=== PATIENT | male | born 1960 | race Caucasian/White ===

== ENCOUNTER 2019-09-24 17:26 | Inpatient (IN) | payer MEDICAID, OTHER ==
[~2019-09-24] VITALS: Ht 175.3 cm; Wt 44.1 kg
[~2019-09-24 17:26] MED LIST: ACET-1770 PO; LOSA100T14 PO; NICO-486 TD; PANT40TA5 PO
--- NOTE | 2019-09-24 17:38 | NUR ---
59 Y/O MALE BIB AMBULANCE WITH C/O WEAKNESS X 1 MONTH, PRODUCTIVE COUGH. PER REPORT PT IS ALSO C/O VOMITING AFTER HE EATS ANYTHING. VSS. FSBS FROM EMS WAS 60. NO LINE ESTABLISHED. PT PLACED ON CONT PULSE OX, NIBP, IP COUNSEL. PT CACHETIC AND LETHARGIC. Addendum: 09/24/19 at 2041 by ROSALINO PATIENT RESTING IN BED, NO NOTED NEEDS AT THIS TIME. NO CHANGE IN PATIENT'S STATUS. CALL LIGHT WITHIN REACH. BED IN LOWEST LOCKED POSITION. WILL CONTINUE TO MONITOR.
--- NOTE | 2019-09-24 17:46 | NUR ---
PIV ESTABLISHED. PT TOLERATED WITH NO COMPLAINTS. UNABLE TO DRAW LABS. D/T VALVE
[2019-09-24] MEDS: D5%-0.45% NACL 1,000 ML IV SCH ×2 (18:22→22:47)
[2019-09-24] MEDS ORDERED: PIPERACILLIN/TAZO/PMX 3.375GM 50 ML ONE (18:27)
[2019-09-24] MEDS ORDERED: PIPERACILLIN/TAZO/PMX 3.375GM 50 ML IVPB ONE (18:30)
--- NOTE | 2019-09-24 18:30 | NUR ---
PT GIVEN URINAL AND EDUCATED REGARDING NEEDING URINE SAMPLE. PT VERBALIZED UNDERSTANDING. NADN. VSS. NO OTHER NEEDS REQUESTED AT THIS TIME.
[2019-09-24 18:36] LABS: BASOPHILS # (AUTO) 0.01 x10^3/uL (0-0.1); BASOPHILS % (AUTO) 0 % (0-1); EOSINOPHILS # (AUTO) 0.11 x10^3/uL (0-0.4); EOSINOPHILS % (AUTO) 1 % (1-7); LYMPHOCYTES # (AUTO) 0.41 x10^3/uL (1-3.4); LYMPHOCYTES % (AUTO) 4 % (22-44); MD NO; MEAN CORPUSCULAR HEMOGLOBIN 30.1 pg (27.5-34.5); MEAN CORPUSCULAR VOLUME 91.2 fL (81-97); MEAN PLATELET VOLUME 7.6 fL (7.4-10.4); MONOCYTES # (AUTO) 0.42 x10^3/uL (0.2-0.8); MONOCYTES % (AUTO) 4 % (2-9); NEUTROPHILS # (AUTO) 8.46 x10^3/uL (1.8-6.8); NEUTROPHILS % (AUTO) 90 % (42-75); PLATELET COUNT 344 x10^3/uL (130-400); RED BLOOD COUNT 3.55 x10^6/uL (4.38-5.82); RED CELL DISTRIBUTION WIDTH 15.4 % (9.4-14.8)
[2019-09-24 18:37] LABS: INTERNATIONAL NORMALIZED RATIO 1.01 (0.93-1.1); PROTHROMBIN TIME 10.7 Seconds (9.6-11.5)
[2019-09-24 18:40] LABS: ALANINE AMINOTRANSFERASE 13 U/L (12-78); ALBUMIN 2.5 g/dL (3.4-5.0); ANION GAP 12 mmol/L (5-15); CHLORIDE 106 mmol/L (98-107); CREATININE 1.42 mg/dL (0.7-1.3)
[2019-09-24 18:42] LABS: ALKALINE PHOSPHATASE 91 U/L (45-117); BILIRUBIN,TOTAL 0.6 mg/dL (0.2-1.0)
--- NOTE | 2019-09-24 18:53 | NUR ---
BEDSIDE REPORT TO SD LEDBETTER
[2019-09-24] MEDS ORDERED: POLYETHYLENE GLYCOL 17 GM PACKET PO PRN (20:00)
[2019-09-24] MEDS ORDERED: ACETAMINOPHEN 325 MG TABLET PO PRN (20:00)
[2019-09-24] MEDS ORDERED: BISACODYL 10 MG SUPP PR PRN (20:00)
[2019-09-24] MEDS ORDERED: OXYcodone IR 5MG TABLET PO PRN (20:00)
[2019-09-24] MEDS ORDERED: ONDANSETRON ODT 4 MG PO PRN (20:00)
--- NOTE | 2019-09-24 20:08 | NUR ---
PATIENT FINISHED ANTIBIOTICS, NO NOTED COMPLICATIONS. PATIENT DENIES ANY REACTIONS. PATIENT'S BS CHECKED WITH BEDSIDE GLUCOMETER; RESULTED IN 144. PATIENT TOLERATING THERAPY WELL. VITAL SIGNS REMAIN STABLE. UPDATED ON PLAN OF CARE. WILL CONTINUE TO MONITOR, BED IN LOWEST LOCKED POSITION. CALL LIGHT WITHIN REACH.
--- NOTE | 2019-09-24 21:11 | NUR ---
REPORT GIVEN TO SD TOPETE. PATIENT WILL BE TRANSFERED VIA [facility]
[2019-09-24 21:23] VITALS: BP 143/87
[2019-09-24] MEDS: NICOTINE 21 MG/24 HR PATCH.TD24 TD SCH (21:25)
[2019-09-24] MEDS: SODIUM CHLORIDE 0.9% 1,000 ML IV SCH (21:51)
[2019-09-24] MEDS: HEPARIN 5,000 UNITS/ML, 1ML SQ SCH (21:52)
[2019-09-24] MEDS: PANTOPRAZOLE 40MG TABLET PO SCH (21:52)
[2019-09-24] MEDS ORDERED: TEMAZEPAM 15 MG CAPSULE PO PRN (22:00)
[2019-09-25] MEDS: D5%-0.45% NACL 1,000 ML IV SCH ×2 (02:17→05:52)
[2019-09-25 03:07] VITALS: BP 120/81
[2019-09-25] MEDS: HEPARIN 5,000 UNITS/ML, 1ML SQ SCH ×3 (05:34→21:45)
[2019-09-25 06:06] LABS: MEAN CORPUSCULAR HEMOGLOBIN 30.2 pg (27.5-34.5); MEAN CORPUSCULAR HGB CONC 33.1 g/dL (33.2-36.2); MEAN CORPUSCULAR VOLUME 91.3 fL (81-97); MEAN PLATELET VOLUME 7.9 fL (7.4-10.4); PLATELET COUNT 253 x10^3/uL (130-400); RED BLOOD COUNT 2.96 x10^6/uL (4.38-5.82); RED CELL DISTRIBUTION WIDTH 15.5 % (9.4-14.8)
[2019-09-25 06:13] LABS: ANION GAP 9 mmol/L (5-15); CALCIUM 8.7 mg/dL (8.5-10.1); CHLORIDE 109 mmol/L (98-107); CREATININE 1.25 mg/dL (0.7-1.3)
[2019-09-25 06:19] LABS: MICROSCOPIC NOT IND
[2019-09-25 06:30] LABS: BASOPHILS # (AUTO) 0.01 x10^3/uL (0-0.1); BASOPHILS % (AUTO) 0 % (0-1); EOSINOPHILS # (AUTO) 0.06 x10^3/uL (0-0.4); EOSINOPHILS % (AUTO) 1 % (1-7); LYMPHOCYTES # (AUTO) 0.51 x10^3/uL (1-3.4); LYMPHOCYTES % (AUTO) 7 % (22-44); MD SCAN; MONOCYTES # (AUTO) 0.49 x10^3/uL (0.2-0.8); MONOCYTES % (AUTO) 6 % (2-9); NEUTROPHILS % (AUTO) 86 % (42-75)
[2019-09-25 08:32] VITALS: BP 126/72
[2019-09-25] MEDS: SODIUM CHLORIDE 0.9% 1,000 ML IV SCH ×2 (08:44→21:48)
[2019-09-25] MEDS: PANTOPRAZOLE 40MG TABLET PO SCH (08:45)
[2019-09-25] MEDS: SENNA/DOCUSATE TABLET PO SCH (08:47)
[2019-09-25] MEDS ORDERED: LOSARTAN 100 MG TAB PO SCH (09:00)
[2019-09-25] MEDS ORDERED: FENTANYL 12 MCG PATCH TD SCH (14:30)
[2019-09-25 15:59] VITALS: BP 122/81
[2019-09-25] MEDS ORDERED: MORPHINE SULFATE 4 MG/ML, 1ML IV PRN (20:15)
[2019-09-25 20:32] VITALS: BP 129/80
[2019-09-25] MEDS: MORPHINE SULFATE 4 MG/ML, 1ML IVPush PRN (20:36)
[2019-09-25] MEDS: NICOTINE 21 MG/24 HR PATCH.TD24 TD SCH (20:40)
[2019-09-25] MEDS: PANTOPRAZOLE 40 MG IV IVPush SCH (21:45)
[2019-09-26] MEDS: MORPHINE SULFATE 4 MG/ML, 1ML IVPush PRN ×4 (00:27→11:43)
[2019-09-26 01:01] VITALS: BP 129/76
[2019-09-26] MEDS ORDERED: MORPHINE SULFATE 4 MG/ML, 1ML IVPush ONE (05:30)
[2019-09-26] MEDS: HEPARIN 5,000 UNITS/ML, 1ML SQ SCH ×3 (05:46→22:00)
[2019-09-26] MEDS: SODIUM CHLORIDE 0.9% 1,000 ML IV SCH ×2 (05:46→14:00)
[2019-09-26 07:44] VITALS: BP 130/81
[2019-09-26] MEDS: SENNA/DOCUSATE TABLET PO SCH (09:00)
[2019-09-26] MEDS: LOSARTAN 50MG TABLET PO SCH (10:25)
[2019-09-26] MEDS: PANTOPRAZOLE 40 MG IV IVPush SCH ×2 (10:44→20:15)
[2019-09-26 14:35] VITALS: BP 142/94
[2019-09-26] MEDS: morphine SULFATE ORAL.CONC 20 MG/ML PO PRN ×2 (16:57→20:15)
[2019-09-26 19:18] VITALS: BP 130/82
[2019-09-26] MEDS: NICOTINE 21 MG/24 HR PATCH.TD24 TD SCH (20:00)
[2019-09-26] MEDS: FENTANYL 25 MCG PATCH TD SCH (20:50)
[2019-09-27 00:27] VITALS: BP 145/84
[2019-09-27] MEDS: SODIUM CHLORIDE 0.9% 1,000 ML IV SCH ×3 (00:31→19:23)
[2019-09-27] MEDS: morphine SULFATE ORAL.CONC 20 MG/ML PO PRN ×6 (01:25→19:31)
[2019-09-27] MEDS: GUAIFENESIN/DM 200-20MG, 10ML UDC PO PRN ×2 (01:25→08:14)
[2019-09-27] MEDS: HEPARIN 5,000 UNITS/ML, 1ML SQ SCH ×3 (05:31→21:02)
[2019-09-27 08:08] VITALS: BP 151/85
[2019-09-27] MEDS: LOSARTAN 50MG TABLET PO SCH (08:10)
[2019-09-27] MEDS: SENNA/DOCUSATE TABLET PO SCH (08:10)
[2019-09-27] MEDS: PANTOPRAZOLE 40 MG IV IVPush SCH ×2 (08:11→21:02)
[2019-09-27 12:25] VITALS: BP 148/87
[2019-09-27 19:45] VITALS: BP 155/95
[2019-09-27] MEDS: NICOTINE 21 MG/24 HR PATCH.TD24 TD SCH (19:47)
[2019-09-28] MEDS: morphine SULFATE ORAL.CONC 20 MG/ML PO PRN ×4 (02:05→20:11)
[2019-09-28 02:06] VITALS: BP 153/94
[2019-09-28] MEDS: SODIUM CHLORIDE 0.9% 1,000 ML IV SCH (05:18)
[2019-09-28] MEDS: HEPARIN 5,000 UNITS/ML, 1ML SQ SCH (05:34)
[2019-09-28 07:15] VITALS: BP 132/79
[2019-09-28] MEDS: LOSARTAN 50MG TABLET PO SCH (07:31)
[2019-09-28] MEDS: SENNA/DOCUSATE TABLET PO SCH (07:32)
[2019-09-28] MEDS: GUAIFENESIN/DM 200-20MG, 10ML UDC PO PRN (07:32)
[2019-09-28] MEDS: PANTOPRAZOLE 40 MG IV IVPush SCH (07:32)
[2019-09-28] MEDS ORDERED: SCOPOLAMINE 1MG PATCH TD SCH (13:30)
[2019-09-29] MEDS: morphine SULFATE ORAL.CONC 20 MG/ML PO PRN (13:03)
[2019-09-29] MEDS: FENTANYL 25 MCG PATCH TD SCH (20:14)
[2019-09-29] MEDS ORDERED: FENTANYL REMOVE PATCH NOTE XX SCH (20:30)
[2019-09-30] MEDS: MORPHINE SULFATE 4 MG/ML, 1ML IVPush PRN (17:58)
== END 2019-10-01 15:20 | disposition expired | DRG 189 ==
LOC: ED 20:06 → EDIP 20:07 → 3N 21:25 → 3WST 09-26 11:42
PROVIDERS: ADMIT Family Medicine; ATTEND Family Medicine
DX: J96.01 Acute respiratory failure with hypoxia (principal); E43 Unspecified severe protein-calorie malnutrition; N17.0 Acute kidney failure with tubular necrosis; Z68.1 Body mass index [BMI] 19.9 or less, adult; R64 Cachexia; C78.00 Secondary malignant neoplasm of unspecified lung; C15.9 Malignant neoplasm of esophagus, unspecified; D64.9 Anemia, unspecified; F17.210 Nicotine dependence, cigarettes, uncomplicated; I46.9 Cardiac arrest, cause unspecified; I73.9 Peripheral vascular disease, unspecified; Z51.5 Encounter for palliative care; Z66 Do not resuscitate; Z92.21 Personal history of antineoplastic chemotherapy; Z90.49 Acquired absence of other specified parts of digestive tract
CPT/HCPCS: 36415; 71045; 80048; 80053; 80307; 81003; 82962; 83605; 83735; 84145; 85025; 85610; 86480; 87040; 93005; 96365; 96366; G0378; J1644; J2543; C9113; J2270; J7030; U0001-CS